=== PATIENT | female | born 1975 | race African-American/Black ===

== ENCOUNTER → 2020-04-26 | Outpatient (CLI) | payer BC, OTHER ==
[~2020-04-26] MED LIST: AMITRIPTYLINE H10 M1 PO; ASPIRIN 32325 MG/TA1 PO; CEPHALEXIN500 M1 PO; INDOCIN50 MG PO; SKELAXIN 800MG800 MG PO; TOPAMAX 25MG25 M1 PO; TOPAMAX50 MG PO; VALTREX1 GM PO
== END ==
LOC: COL.RAD 10:23
DX: G81.90 Hemiplegia, unspecified affecting unspecified side (principal); R51 Headache
CPT/HCPCS: A9585